=== PATIENT | female | born 1960 | race Caucasian/White ===

== ENCOUNTER 2018-04-22 20:55 | Observation (INO) | payer OTHER, SELFPAY ==
[2018-04-22 20:56] VITALS: BP 136/77; PULSE 82; RESP 16; TEMP 36.4; O2SAT 99; BMI 32.9
--- NOTE | 2018-04-22 21:10 | EKG12_ITS ---
Test Reason : SOB Blood Pressure : / mmHG Vent. Rate : 078 BPM Atrial Rate : 078 BPM P-R Int : 122 ms QRS Dur : 088 ms QT Int : 376 ms P-R-T Axes : 036 028 051 degrees QTc Int : 428 ms Normal sinus rhythm Normal ECG Confirmed by JT GOODRICH MD ([id number]), visual effects editor JENSEN HOPE ([id number] on 04/28/2018 9:14:20 AM Referred By: SARAH Confirmed By:JT GOODRICH MD
--- NOTE | 2018-04-22 21:10 | RAD_ITS ---
STUDY: X-RAY CHEST REASON FOR EXAM: Female, 57 years old. Cough and chest pain TECHNIQUE: PA and lateral COMPARISON: None. FINDINGS: There is minor chronic interstitial thickening in the lower lobes.. There are no focal infiltrates. There is no demonstrated pleural abnormality. Normal size heart. Normal mediastinum and john. Normal visualized pulmonary arteries. Normal visualized aortic arch and descending thoracic aorta. Normal visualized thoracic spine. Normal visualized ribs, clavicles, and shoulders. There is no demonstrated abnormality of the visualized soft tissue structures of the upper abdomen. RAD/Chest PA and Lateral IMPRESSION: No acute cardiopulmonary pathology Electronically Signed: Alvaro Sung MD at 22:15 EDT , Service support ,
--- NOTE | 2018-04-22 21:12 | ED.VISSUMM ---
- ER Visit Summary Date of Service: 04/22/18 Chief Complaint: Pleuritic chest pain, shortness of breath History of Present Illness: The patient is a 57 F who presents with 1 day of left-sided pleuritic chest pain. Patient states the pain started earlier today, and is located in the left lateral chest. It is worse with deep breath. She had a recent bad cold that started 2 weeks ago and was evaluated at [facility] urgent care, diagnosed with a viral syndrome and discharged with cough medicine. In the meantime she has traveled to [place], and returned yesterday. She had been feeling better from her cold but today developed the pleuritic chest pain and had a fever up to 101.8. She has nausea and myalgias. Denies hemoptysis. She states she has a history of pleurisy on both sides of her chest and this feels similar. She denies any history of prior DVT or PE, cardiac history, history of cancer, estrogen replacement, smoking. No history of diabetes or hypertension. Physical Examination: Vital signs: afebrile, hemodynamically stable, no hypoxia on room air General: well nourished, well developed, in no distress, frequent cough Skin: warm, dry, no rash, no pallor HEENT: normocephalic and atraumatic; PERRL, EOMI, moist mucous membranes Cardiovascular: regular rate and rhythm without murmurs, no friction rub, no peripheral edema, 2+ pulses all distal extremities Respiratory: No increased work of breathing, cough with deep breath, lungs are clear to auscultation bilaterally, no rales, rhonchi or wheezing Abdominal: Abdomen is soft, nontender with normoactive bowel sounds, no guarding or rebound, no masses MSK: Moves all extremities, no deformities, normal strength no calf tenderness, asymmetry or palpable cords Neuro: Awake and alert, oriented ?4. No facial droop, sensation and motor function intact and symmetric Test Results: Abnormal Lab Results 04/22/18 04/22/18 04/22/18 21:15 21:15 21:15 WBC 17.1 H RBC 4.30 Hgb 13.1 Hct 38.6 MCV 89.8 MCH 30.5 MCHC 33.9 RDW 13.4 RDW Differential 44.3 H Plt Count 272 MPV 9.2 Immature Gran % (Auto) 0.100 Neut % (Auto) 85.3 H Lymph % (Auto) 9.3 L [place] % (Auto) 4.8 Eos % (Auto) 0.4 Baso % (Auto) 0.1 Absolute Neuts (auto) 14.6 H Absolute Lymphs (auto) 1.59 Total Counted Not Reportable D-Dimer Quant (PE/DVT) 0.58 H* Sodium 137 Potassium 3.7 Chloride 102 Carbon Dioxide 28.0 Anion Gap 7 BUN 13 Creatinine 0.94 Estim Creat Clear Calc 52.22 Est GFR (MDRD) Af Amer 79 Est GFR (MDRD) Non-Af 65 BUN/Creatinine Ratio 13.9 Glucose 114 H Calcium 9.1 Troponin I < 0.015 Clinical Impression(s) from Imaging Studies Chest X-Ray 04/22/18 21:10 IMPRESSION: No acute cardiopulmonary pathology Electronically Signed: Alvaro Sung MD at 22:15 EDT , Service support , Chest CTA 04/22/18 21:57 IMPRESSION: No evidence of pulmonary embolism. No evidence of aortic dissection. 3.3 x 3.0 x 2.1 cm masslike density in the left upper lobe. Although infection could have this appearance neoplasm should be excluded. Left hilar lymphadenopathy. N.B. : The above information has been verbally conveyed by Ella Bennett MD to Yisel Fuller on 04/22/2018 23:32:31 (ET). Electronically Signed: Ella Bennett MD at 23:27 EDT Tel , Service support , N.B. : The above information has been verbally conveyed by Ella Bennett MD to Yisel Fuller on 04/22/2018 23:32:31 (ET). Emergency Department Course and Treatment: Patient presents with left-sided pleuritic chest pain and fever which she attributes to pleurisy 1 day after returning from [place]. Patient has had recent viral syndrome. Patient was given Toradol and Zofran for symptomatic relief. Given the recent long plane ride and the pleuritic chest pain, d-dimer was performed and was elevated at 0.58. Troponin negative. EKG showed no MD depression or ST elevation concerning for pericarditis, and no changes concerning for ischemia. Labs showed a leukocytosis of 17.1. BMP unremarkable. Given the elevated d-dimer, CT of the chest was performed and showed no PE or dissection. There was a masslike density in the left upper lobe that looked more consistent with a neoplasm than pneumonia. However given patient's symptoms that are consistent with infectious etiology, she was started on antibiotics to cover community acquired pneumonia. Patient was admitted for IV antibiotics and close monitoring as well as further characterization of the mass-like density. Patient agreed with this plan. She was discussed with Dr. Marshall for admission as observation status. Patient did not meet SIRS criteria, thus sepsis protocol was not initiated. Treatment Plan: [] Disposition: [] Impression: Community-acquired pneumonia, left upper lobe mass This note was generated with [employer] software. It may contain incorrect words, spelling, and punctuation that were not noted in review of the chart prior to signing ED Disposition - Plan for ED Patient: Chief Complaint: Shortness of Breath Referrals: Care Physician,No Primary [NON-STAFF] -
--- NOTE | 2018-04-22 21:15 | ED.DCSUM_ITS ---
- ER Visit Summary Date of Service: 04/22/18 Chief Complaint: Pleuritic chest pain, shortness of breath History of Present Illness: The patient is a 57 F who presents with 1 day of left-sided pleuritic chest pain. Patient states the pain started earlier today , and is located in the left lateral chest. It is worse with deep breath. She had a recent bad cold that started 2 weeks ago and was evaluated at [facility] urgent care, diagnosed with a viral syndrome and discharged with cough medicine. In the meantime she has traveled to [place], and returned yesterday. She had been feeling better from her cold but today developed the pleuritic chest pain and had a fever up to 101.8. She has nausea and myalgias. Denies hemoptysis. She states she has a history of pleurisy on both sides of her chest and this feels similar. She denies any history of prior DVT or PE, cardiac history, history of cancer, estrogen replacement, smoking. No history of diabetes or hypertension. Physical Examination: Vital signs: afebrile, hemodynamically stable, no hypoxia on room air General: well nourished, well developed, in no distress, frequent cough Skin: warm, dry, no rash, no pallor HEENT: normocephalic and atraumatic; PERRL, EOMI, moist mucous membranes Cardiovascular: regular rate and rhythm without murmurs, no friction rub, no peripheral edema, 2+ pulses all distal extremities Respiratory: No increased work of breathing, cough with deep breath, lungs are clear to auscultation bilaterally, no rales, rhonchi or wheezing Abdominal: Abdomen is soft, nontender with normoactive bowel sounds, no guarding or rebound, no masses MSK: Moves all extremities, no deformities, normal strength no calf tenderness, asymmetry or palpable cords Neuro: Awake and alert, oriented ?4. No facial droop, sensation and motor function intact and symmetric Test Results: Abnormal Lab Results 04/22/18 04/22/18 04/22/18 21:15 21:15 21:15 WBC 17.1 H RBC 4.30 Hgb 13.1 Hct 38.6 MCV 89.8 MCH 30.5 MCHC 33.9 RDW 13.4 RDW Differential 44.3 H Plt Count 272 MPV 9.2 Immature Gran % (Auto) 0.100 Neut % (Auto) 85.3 H Lymph % (Auto) 9.3 L [place] % (Auto) 4.8 Eos % (Auto) 0.4 Baso % (Auto) 0.1 Absolute Neuts (auto) 14.6 H Absolute Lymphs (auto) 1.59 Total Counted Not Reportable D-Dimer Quant (PE/DVT) 0.58 H* Sodium 137 Potassium 3.7 Chloride 102 Carbon Dioxide 28.0 Anion Gap 7 BUN 13 Creatinine 0.94 Estim Creat Clear Calc 52.22 Est GFR (MDRD) Af Amer 79 Est GFR (MDRD) Non-Af 65 BUN/Creatinine Ratio 13.9 Glucose 114 H Calcium 9.1 Troponin I < 0.015 Clinical Impression(s) from Imaging Studies Chest X-Ray 04/22/18 21:10 IMPRESSION: No acute cardiopulmonary pathology Electronically Signed: Alvaro Sung MD at 22:15 EDT , Service support , Chest CTA 04/22/18 21:57 IMPRESSION: No evidence of pulmonary embolism. No evidence of aortic dissection. 3.3 x 3.0 x 2.1 cm masslike density in the left upper lobe. Although infection could have this appearance neoplasm should be excluded. Left hilar lymphadenopathy. N.B. : The above information has been verbally conveyed by Ella Bennett MD to Yisel Fuller on 04/22/2018 23:32:31 (ET). Electronically Signed: Ella Bennett MD at 23:27 EDT Tel , Service support , N.B. : The above information has been verbally conveyed by Ella Bennett MD to Yisel Fuller on 04/22/2018 23:32:31 (ET). Emergency Department Course and Treatment: Patient presents with left-sided pleuritic chest pain and fever which she attributes to pleurisy 1 day after returning from [place]. Patient has had recent viral syndrome. Patient was given Toradol and Zofran for symptomatic relief. Given the recent long plane ride and the pleuritic chest pain, d-dimer was performed and was elevated at 0.58. Troponin negative. EKG showed no IA depression or ST elevation concerning for pericarditis, and no changes concerning for ischemia. Labs showed a leukocytosis of 17.1. BMP unremarkable. Given the elevated d-dimer, CT of the chest was performed and showed no PE or dissection. There was a masslike density in the left upper lobe that looked more consistent with a neoplasm than pneumonia. However given patient's symptoms that are consistent with infectious etiology, she was started on antibiotics to cover community acquired pneumonia. Patient was admitted for IV antibiotics and close monitoring as well as further characterization of the mass-like density. Patient agreed with this plan. She was discussed with Dr. Marshall for admission as observation status. Patient did not meet SIRS criteria, thus sepsis protocol was not initiated. Treatment Plan: [] Disposition: [] Impression: Community-acquired pneumonia, left upper lobe mass This note was generated with [employer] software. It may contain incorrect words, spelling, and punctuation that were not noted in review of the chart prior to signing ED Disposition - Plan for ED Patient: Chief Complaint: Shortness of Breath Referrals: Care Physician,No Primary [NON-STAFF] -
[2018-04-22] MEDS: Ondansetron 4 MG/2 ML Vial IV (21:20)
[2018-04-22] MEDS: Ketorolac 15 MG/ML Vial IV (21:20)
[2018-04-22] MEDS: 0.9% Normal Saline 1,000 ML 999 ML IV (21:21)
[2018-04-22 21:23] LABS: Absolute Lymphocyte Count 1.59 X10^3/ul (0.83-4.51); Absolute Neutrophil Count 14.6 X10^3/uL (2.0-7.7); Basophil# 0.01 X10^3/uL; Basophil% 0.1 % (0-1); Eosinophil# 0.06 X10^3/uL; Eosinophils% 0.4 % (0-5); Hematocrit 38.6 % (37-47); Hemoglobin 13.1 g/dl (12.0-15.0); Lymphocyte # 1.59 X10^3/ul (4.0); Lymphocyte % 9.3 % (19-41); Mean Corp Hgb Conc 33.9 g/gl (32-36); Mean Corpuscular Hgb 30.5 pg (27.0-32.0); Mean Corpuscular Volume 89.8 fL (81-99); Mean Platelet Vol. 9.2 fl (6.2-12.0); Monocyte# 0.83 X10^3/uL; Monocyte% 4.8 % (0-10); Neutrophil # 14.63 X10^3/uL (2.7-7.7); Neutrophil % 85.3 % (47-70); POSITIVE COUNT NO; POSITIVE DIFFERENTIAL NO; POSITIVE MORPHOLOGY NO; Platelet Count 272 K/mm3 (150-450); RBC Distribution Width CV 13.4 % (11.6-14.6); RBC Distribution Width SD 44.3 fl (35.1-43.9); White Blood Count 17.1 K/mm3 (4.4-11.0)
[2018-04-22 21:37] LABS: D-Dimer Quantitative (DVT/PE) 0.58 FEU/ug/m (0.27-0.49)
[2018-04-22 21:40] LABS: Anion Gap 7 (5-15); BUN 13 mg/dL (7-18); BUN/Creat Ratio 13.9 RATIO (10-20); Calcium,Total 9.1 mg/dL (8.5-10.1); Chloride 102 mmol/L (98-107); Creatinine, Serum 0.94 mg/dL (0.55-1.02); EST Glomerular Filtration Rate 65 mL/min (>60); Est Glom Filt Rate - Afr Amer 79 mL/min (>60); Estimated Creatinine Clearance 52.22 ml/min; Glucose 114 mg/dL (74-106); Potassium 3.7 mmol/L (3.5-5.1); Sodium Level 137 mmol/L (136-145)
--- NOTE | 2018-04-22 21:57 | CT_ITS ---
STUDY: CTA CHEST REASON FOR EXAM: Female, 57 years old. Shortness of breath, increased cough nausea fever and elevated white count d-dimer RADIATION DOSAGE (If Supplied By Facility): CTDIvol = ( 13.09 ) mGy, DLP = ( 597.95 ) mGycm TECHNIQUE: The examination was performed with the intravenous administration of 100ML ml of Isovue 370 contrast material. Post-processing of the angiographic images was performed, with multiplanar reformation and 3D reconstruction. Individualized dose optimization techniques were used for this CT. COMPARISON: April 22, 2018 chest x-ray FINDINGS: Normal enhancement of the main pulmonary artery and right and left pulmonary arteries. Normal enhancement of the bilateral peripheral pulmonary arteries. There is no demonstrated pulmonary embolism. Normal thoracic aorta and visualized great vessels. There is no demonstrated aortic dissection. Normal heart and pericardium. Normal mediastinum. There is a thickened appearance of the left hilum. There is a 1.3 x 0.7 cm lymph node. Normal visualized trachea and bronchi. There is a focal rounded masslike consolidation in the left upper lobe that measures 3.3 x 3.0 x 2.1 cm with adjacent nodular densities injuring up to 1.3 x 0.9 cm. There is right apical thickening. There are a few scattered areas of groundglass opacity and/or air trapping. There is trace pleural thickening adjacent to the aforementioned masslike density. Normal chest wall structures. Normal osseous structures. There is a small atrial hernia. There is hepatic steatosis. CT/CTA Chest W/WO Contrast IMPRESSION: No evidence of pulmonary embolism. No evidence of aortic dissection. 3.3 x 3.0 x 2.1 cm masslike density in the left upper lobe. Although infection could have this appearance neoplasm should be excluded. Left hilar lymphadenopathy. N.B. : The above information has been verbally conveyed by Ella Bennett MD to Yisel Fuller on 04/22/2018 23:32:31 (ET). Electronically Signed: Ella Bennett MD at 23:27 EDT Tel , Service support , N.B. : The above information has been verbally conveyed by Ella Bennett MD to Yisel Fuller on 04/22/2018 23:32:31 (ET).
--- NOTE | 2018-04-22 23:59 | HP.PCM_ITS ---
Problem List (1) CAP (community acquired pneumonia) Status: Acute (2) Left frontal lobe mass Status: Acute History of Present Illness Date of Admission: 04/22/18 Chief Complaint: CAP The patient is a 57 year old female admitted for CAP. She was diagnosis with viral bronchitis prior to her trip to [place]. She was coughing and has mild SOB. She was given cough suppressant meds but she did not take it. During her trip, she noted that her cough has decrease in intensity and frequency. However, as she got back on the plane back to [place], she noted possible worsening SOB and cough. Given the duration of her cough, she decided to go to the ED for further workup. 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 Denies: Shortness of breath at rest, Sputum production Gastrointestinal: Denies: Abdominal Pain, Nausea, Vomiting Genitourinary: Denies: Dysuria Musculoskeletal: Denies: Joint Pain, Joint Tenderness Skin: Denies: Rash, Wounds Neurological: Denies: Numbness, Tingling, Focal weakness Psychiatric: Denies: Anxiety, Depression, Homicidal Ideations, Suicidal Ideations Hematologic/ Lymphatic: Denies: Easy Bruising, Easy Bleeding VTE Information - Inpt Only VTE Present on Admission: No VTE Mechan Device Prophylaxis: SCD's VTE Pharm Prophylaxis ordered?: Yes Patient Problems: Active and Suspected Problems CAP (community acquired pneumonia) (Acute) Left frontal lobe mass (Acute) - Physical Exam General: Alert, Oriented x3, Cooperative HEENT: Atraumatic, PERRLA, EOMI, Normocephalic Neck: Supple, No JVD, Negative Carotid Bruits Lungs: Normal air movement, Diminished, Rales, Short of Breath Cardiovascular: Regular rate, No murmurs Abdomen: Bowel Sounds Present, Soft, Non Tender Extremities: No edema, Capillary Refill Less than 3 Seconds Skin: No rashes, No breakdown Musculoskeletal: No Tenderness to Palpation of Joints or Extremities Neurological: Cranial nerves II-XII grossly intact Psych/Mental Status: Normal Affect, Appropriate Vital Signs Temp Pulse Resp BP Pulse Ox 97.6 F L 82 16 136/77 H 99 04/22/18 20:56 04/22/18 20:56 04/22/18 20:56 04/22/18 20:56 04/22/18 20:56 Weight: 81.647 kg Body Mass Index (BMI) 32.9 Laboratory Tests Past 24 Hrs 04/22/18 04/22/18 04/22/18 21:15 21:15 21:15 WBC 17.1 H RBC 4.30 Hgb 13.1 Hct 38.6 MCV 89.8 MCH 30.5 MCHC 33.9 RDW 13.4 RDW Differential 44.3 H Plt Count 272 MPV 9.2 Immature Gran % (Auto) 0.100 Neut % (Auto) 85.3 H Lymph % (Auto) 9.3 L [place] % (Auto) 4.8 Eos % (Auto) 0.4 Baso % (Auto) 0.1 Absolute Neuts (auto) 14.6 H Absolute Lymphs (auto) 1.59 Total Counted Not Reportable D-Dimer Quant (PE/DVT) 0.58 H* Sodium 137 Potassium 3.7 Chloride 102 Carbon Dioxide 28.0 Anion Gap 7 BUN 13 Creatinine 0.94 Estim Creat Clear Calc 52.22 Est GFR (MDRD) Af Amer 79 Est GFR (MDRD) Non-Af 65 BUN/Creatinine Ratio 13.9 Glucose 114 H Calcium 9.1 Troponin I < 0.015 Assessment/Plan All Active Problems CAP (community acquired pneumonia) (Acute) Left frontal lobe mass (Acute) 57 year old female admitted for CAP. 1) CAP: Will start ceftriaxone and azithromycin. Cultures pending. IVF hydration. Supportive care. 2) Left upper lobe mass: Probably will need repeat imaging after infection resolves. Consult pulmonary. Monitor. 3) HTN: Supportive care. Monitor. 4) Prophylaxis: SCD / heparin.
[2018-04-23] VITALS (7 sets, daily range): BP systolic 102–139; BP diastolic 54–74; PULSE 17–88; RESP 16–20; TEMP 36.1–38.4; O2SAT 94–98; BMI 34.2; BMI 34.3
[2018-04-23] MEDS: Ceftriaxone 1 GM/50 ML BAG IV (00:27)
[2018-04-23] MEDS: Morphine 2 MG/ML Syringe IV (01:48)
[2018-04-23] MEDS: 0.9% Normal Saline 1,000 ML 125 ML IV (02:18)
[2018-04-23 04:14] LABS: Color, Urine Yellow (Yellow); Glucose, Dipstick Normal (Normal); Ketone-Dipstick Negative (Negative); Leukocyte Esterase-Dipstick 25 /ul (Negative); Nitrite-Dipstick Negative (Negative); Occult Blood-Urine 10 /ul (Negative); Protein-Dipstick 15 mg/dl (Negative); Urine Bilirubin Dipstick Negative (Negative); Urine Clarity Sl. Cloudy (Clear); Urine Urobilinogen Normal (Normal)
[2018-04-23] MEDS: Heparin Injection (Vial) 5,000 UNIT/ML VIAL 5000 UNIT SC (05:46)
--- NOTE | 2018-04-23 08:09 | PCM.CONS.GEN ---
Problem List (1) CAP (community acquired pneumonia) Status: Acute Qualifiers: Laterality: left Lung location: upper lobe of lung Qualified Code(s): J18.1 - Lobar pneumonia, unspecified organism (2) Pleurisy without effusion Status: Acute Reason for Consult Date of Consultation: 04/23/18 Reason for Consultation: Pneumonia versus lung mass History of Present Illness: The patient is a 57 year old F with past medical history listed below, who presented with a one-day history of left-sided pleuritic chest pain. Patient states that it started on the day of presentation in the left anterior chest. This was reported worse with deep inhalation. Patient had also noted a temperature up to 101.8?F, nausea and myalgias. Patient reports that 2 weeks ago she was seen at [facility] urgent care and diagnosed with a viral syndrome. Patient states she was discharged on cough medicine and did make it back to her baseline prior to developing symptoms of presentation. While in the emergency room, patient was noted to be afebrile without hypoxemia on room air. A chest x-ray was read as normal, but his CTA was obtained to rule out pulmonary embolism. This was significant for a 3.3 x 3 x 2.1 cm filtrate in the left upper lobe with extension to the pleura and concomitant left hilar lymphadenopathy. Patient was placed on community-acquired antibiotics and admitted to the floor for further evaluation. Patient reports she has had pleurisy approximately 6 years ago. Patient states that she recovered without any further issues. Patient denies any baseline respiratory complaints. Patient has never required inhalers or had a pulmonary function test. Patient does report that she has been compliant with her mammogram and recently had a hysterectomy without any malignancy. Patient states that she has had a colonoscopy in the past that was normal and that a new one is scheduled for this Wednesday. Patient denies any weight loss, hemoptysis, rash or toxic exposures. Patient does report that she recently took a trip with students to [place]. Patient states that she tolerated this well and had no issues while on vacation outside of the recovery from the URI described earlier. Review of systems otherwise negative ?10 systems. Past Medical History Allergies hydromorphone [From Dilaudid] Adverse Reaction (Verified 04/22/18 20:57) Vomiting Home Medications: Ambulatory Orders Medication Instructions Recorded Acetaminophen/Diphenhydramine 1 each PO QHS 10/27/17 [Tylenol Pm Ex-Strength Caplet] Esomeprazole Mag Trihydrate 40 mg PO DAILY 10/27/17 [Nexium] Multivitamin [Multiple Vitamins] 1 each PO DAILY 04/22/18 Psychiatric History: No pertinent psych hx CAT DOG OR OTHER PET GROOMER History: No pertinent CAT DOG OR OTHER PET GROOMER history Smoking Status: Never smoker Alcohol: None Drugs: None - *Family History Maternal History Items: - - Grandmother had breast cancer Review of Systems Comment: See HPI Patient Problems: Active and Suspected Problems CAP (community acquired pneumonia) (Acute) Left frontal lobe mass (Acute) Pleurisy without effusion (Acute) Objective: All imaging was personally reviewed by myself and with the patient. The area of concern was pointed out and described in detail. - Physical Exam General: Alert, Oriented x3, Cooperative, No apparent distress, Well developed, Well nourished, - - Speaking in full sentences. HEENT: Atraumatic, PERRLA, EOMI, Normocephalic, - - No scleral icterus or injection noted. Oral: Moist Mucosa, No Gingival or Mucosal Lesions/ Ulcerations Neck: Supple, No JVD, No Nodes, Trachea Midline Lungs: Clear to auscultation, Normal air movement, No rhonchi, No wheeze, No rales, - - Unable to replicate pain with palpation Cardiovascular: Regular rate, Regular Rhythm, Normal S1, Normal S2, No murmurs, No rub noted, No Gallop Abdomen: Bowel Sounds Present, Soft, Non Tender, Non-Distended, Obese Extremities: No clubbing, No cyanosis, No edema, Capillary Refill Less than 3 Seconds Skin: No rashes, No breakdown Musculoskeletal: No Tenderness to Palpation of Joints or Extremities, No Muscle Wasting Lymphatic: No Cervical, Supraclavicular, or Inguinal Adenopathy Neurological: Cranial nerves II-XII grossly intact, Neuro grossly intact, Motor Exam 5/5 strength throughout Psych/Mental Status: Alert and oriented to time, place, person, mood and affect Vital Signs Temp Pulse Resp BP Pulse Ox 37.8 C H 86 16 139/73 H 96 04/23/18 05:38 04/23/18 06:14 04/23/18 05:38 04/23/18 05:38 04/23/18 05:38 Oxygen Delivery Method Room Air Weight: 85 kg Body Mass Index (BMI) 34.2 Intake and Output for Last 24 Hours 04/21/18 04/22/18 04/23/18 23:59 23:59 23:59 Intake Total 1133 / 1133 Balance 1133 / 1133 Microbiology Past 72 Hours 04/23/18 05:45 Influenza Types A,B Direct FA (RAMON) - Final Mucosa - Nasopharyngeal 04/23/18 04:00 Streptococcus pneumoniae Antigen (M - Final Urine, Random 04/23/18 04:00 Legionella Antigen - Final Urine, Random Laboratory Tests 04/22/18 04/22/18 04/22/18 21:15 21:15 21:15 WBC 17.1 H RBC 4.30 Hgb 13.1 Hct 38.6 MCV 89.8 MCH 30.5 MCHC 33.9 RDW 13.4 RDW Differential 44.3 H Plt Count 272 MPV 9.2 Immature Gran % (Auto) 0.100 Neut % (Auto) 85.3 H Lymph % (Auto) 9.3 L [place] % (Auto) 4.8 Eos % (Auto) 0.4 Baso % (Auto) 0.1 Absolute Neuts (auto) 14.6 H Absolute Lymphs (auto) 1.59 Total Counted Not Reportable D-Dimer Quant (PE/DVT) 0.58 H* Sodium 137 Potassium 3.7 Chloride 102 Carbon Dioxide 28.0 Anion Gap 7 BUN 13 Creatinine 0.94 Estim Creat Clear Calc 52.22 Est GFR (MDRD) Af Amer 79 Est GFR (MDRD) Non-Af 65 BUN/Creatinine Ratio 13.9 Glucose 114 H Calcium 9.1 Troponin I < 0.015 Urine Color Urine Clarity Urine pH Ur Specific [place] Urine Protein Urine Glucose (UA) Urine Ketones Urine Occult Blood Urine Nitrite Urine Bilirubin Urine Urobilinogen Ur Leukocyte Esterase 04/23/18 04:00 WBC RBC Hgb Hct MCV MCH MCHC RDW RDW Differential Plt Count MPV Immature Gran % (Auto) Neut % (Auto) Lymph % (Auto) [place] % (Auto) Eos % (Auto) Baso % (Auto) Absolute Neuts (auto) Absolute Lymphs (auto) Total Counted D-Dimer Quant (PE/DVT) Sodium Potassium Chloride Carbon Dioxide Anion Gap BUN Creatinine Estim Creat Clear Calc Est GFR (MDRD) Af Amer Est GFR (MDRD) Non-Af BUN/Creatinine Ratio Glucose Calcium Troponin I Urine Color Yellow Urine Clarity Sl. Cloudy Urine pH 6.0 Ur Specific [place] 1.010 Urine Protein 15 H Urine Glucose (UA) Normal Urine Ketones Negative Urine Occult Blood 10 H Urine Nitrite Negative Urine Bilirubin Negative Urine Urobilinogen Normal Ur Leukocyte Esterase 25 H Clinical Impression(s) from Imaging Studies Chest X-Ray 04/22/18 21:10 IMPRESSION: No acute cardiopulmonary pathology Electronically Signed: Alvaro Sung MD at 22:15 EDT , Service support , Chest CTA 04/22/18 21:57 IMPRESSION: No evidence of pulmonary embolism. No evidence of aortic dissection. 3.3 x 3.0 x 2.1 cm masslike density in the left upper lobe. Although infection could have this appearance neoplasm should be excluded. Left hilar lymphadenopathy. N.B. : The above information has been verbally conveyed by Ella Bennett MD to Yisel Fuller on 04/22/2018 23:32:31 (ET). Electronically Signed: Ella Bennett MD at 23:27 EDT Tel , Service support , N.B. : The above information has been verbally conveyed by Ella Bennett MD to Yisel Jonny on 04/22/2018 23:32:31 (ET). Assessment/Plan All Active Problems CAP (community acquired pneumonia) (Acute) Left frontal lobe mass (Acute) Pleurisy without effusion (Acute) RECOMMENDATIONS: 1. NSAID therapy for pleurisy 2. Complete a 10 day course of antibiotics for pneumonia 3. Repeat CT scan in 6-8 weeks 4. Walking oximetry prior to discharge 5. Follow-up with nurse practitioner 2 weeks after discharge to ensure resolution IMPRESSIONS: 1. Pleurisy secondary to community-acquired pneumonia After personal review of CT scan, findings are more consistent with a bacterial pneumonia than a mass. Patient is aware that pneumonia can obscure underlying malignancy. Patient does not have a high risk history for malignancy. Recommend treating with a full course of antibiotics. Patient has no reported history of obstructive lung disease, so steroids would not be indicated. Patient can likely be discharged from a pulmonary perspective with follow-up in our office in 2 weeks with nurse practitioner to ensure resolution and to order follow-up CT. A repeat CT scan in 6-8 weeks can be obtained. NSAIDs would likely be appropriate for pleurisy. Code Visit Inpatient E&M: 64532 Init Hosp L2
--- NOTE | 2018-04-23 08:37 | CON.PCM_ITS ---
Problem List (1) CAP (community acquired pneumonia) Status: Acute Qualifiers: Laterality: left Lung location: upper lobe of lung Qualified Code(s): J18.1 - Lobar pneumonia, unspecified organism (2) Pleurisy without effusion Status: Acute Reason for Consult Date of Consultation: 04/23/18 Reason for Consultation: Pneumonia versus lung mass History of Present Illness: The patient is a 57 year old F with past medical history listed below, who presented with a one-day history of left-sided pleuritic chest pain. Patient states that it started on the day of presentation in the left anterior chest. This was reported worse with deep inhalation. Patient had also noted a temperature up to 101.8?F, nausea and myalgias. Patient reports that 2 weeks ago she was seen at [facility] urgent care and diagnosed with a viral syndrome. Patient states she was discharged on cough medicine and did make it back to her baseline prior to developing symptoms of presentation. While in the emergency room, patient was noted to be afebrile without hypoxemia on room air. A chest x-ray was read as normal, but his CTA was obtained to rule out pulmonary embolism. This was significant for a 3.3 x 3 x 2.1 cm filtrate in the left upper lobe with extension to the pleura and concomitant left hilar lymphadenopathy. Patient was placed on community-acquired antibiotics and admitted to the floor for further evaluation. Patient reports she has had pleurisy approximately 6 years ago. Patient states that she recovered without any further issues. Patient denies any baseline respiratory complaints. Patient has never required inhalers or had a pulmonary function test. Patient does report that she has been compliant with her mammogram and recently had a hysterectomy without any malignancy. Patient states that she has had a colonoscopy in the past that was normal and that a new one is scheduled for this Wednesday. Patient denies any weight loss, hemoptysis, rash or toxic exposures. Patient does report that she recently took a trip with students to [place]. Patient states that she tolerated this well and had no issues while on vacation outside of the recovery from the URI described earlier. Review of systems otherwise negative ?10 systems. 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 The area of concern was pointed out and described in detail. - Physical Exam General: Alert, Oriented x3, Cooperative, No apparent distress, Well developed, Well nourished, - - Speaking in full sentences. HEENT: Atraumatic, PERRLA, EOMI, Normocephalic, - - No scleral icterus or injection noted. Oral: Moist Mucosa, No Gingival or Mucosal Lesions/ Ulcerations Neck: Supple, No JVD, No Nodes, Trachea Midline Lungs: Clear to auscultation, Normal air movement, No rhonchi, No wheeze, No rales, - - Unable to replicate pain with palpation Cardiovascular: Regular rate, Regular Rhythm, Normal S1, Normal S2, No murmurs, No rub noted, No Gallop Abdomen: Bowel Sounds Present, Soft, Non Tender, Non-Distended, Obese Extremities: No clubbing, No cyanosis, No edema, Capillary Refill Less than 3 Seconds Skin: No rashes, No breakdown Musculoskeletal: No Tenderness to Palpation of Joints or Extremities, No Muscle Wasting Lymphatic: No Cervical, Supraclavicular, or Inguinal Adenopathy Neurological: Cranial nerves II-XII grossly intact, Neuro grossly intact, Motor Exam 5/5 strength throughout Psych/Mental Status: Alert and oriented to time, place, person, mood and affect Vital Signs Temp Pulse Resp BP Pulse Ox 37.8 C H 86 16 139/73 H 96 04/23/18 05:38 04/23/18 06:14 04/23/18 05:38 04/23/18 05:38 04/23/18 05:38 Oxygen Delivery Method Room Air Weight: 85 kg Body Mass Index (BMI) 34.2 Intake and Output for Last 24 Hours 04/21/18 04/22/18 04/23/18 23:59 23:59 23:59 Intake Total 1133 / 1133 Balance 1133 / 1133 Microbiology Past 72 Hours 04/23/18 05:45 Influenza Types A,B Direct FA (RAMON) - Final Mucosa - Nasopharyngeal 04/23/18 04:00 Streptococcus pneumoniae Antigen (M - Final Urine, Random 04/23/18 04:00 Legionella Antigen - Final Urine, Random Laboratory Tests 04/22/18 04/22/18 04/22/18 21:15 21:15 21:15 WBC 17.1 H RBC 4.30 Hgb 13.1 Hct 38.6 MCV 89.8 MCH 30.5 MCHC 33.9 RDW 13.4 RDW Differential 44.3 H Plt Count 272 MPV 9.2 Immature Gran % (Auto) 0.100 Neut % (Auto) 85.3 H Lymph % (Auto) 9.3 L [place] % (Auto) 4.8 Eos % (Auto) 0.4 Baso % (Auto) 0.1 Absolute Neuts (auto) 14.6 H Absolute Lymphs (auto) 1.59 Total Counted Not Reportable D-Dimer Quant (PE/DVT) 0.58 H* Sodium 137 Potassium 3.7 Chloride 102 Carbon Dioxide 28.0 Anion Gap 7 BUN 13 Creatinine 0.94 Estim Creat Clear Calc 52.22 Est GFR (MDRD) Af Amer 79 Est GFR (MDRD) Non-Af 65 BUN/Creatinine Ratio 13.9 Glucose 114 H Calcium 9.1 Troponin I < 0.015 Urine Color Urine Clarity Urine pH Ur Specific [place] Urine Protein Urine Glucose (UA) Urine Ketones Urine Occult Blood Urine Nitrite Urine Bilirubin Urine Urobilinogen Ur Leukocyte Esterase 04/23/18 04:00 WBC RBC Hgb Hct MCV MCH MCHC RDW RDW Differential Plt Count MPV Immature Gran % (Auto) Neut % (Auto) Lymph % (Auto) [place] % (Auto) Eos % (Auto) Baso % (Auto) Absolute Neuts (auto) Absolute Lymphs (auto) Total Counted D-Dimer Quant (PE/DVT) Sodium Potassium Chloride Carbon Dioxide Anion Gap BUN Creatinine Estim Creat Clear Calc Est GFR (MDRD) Af Amer Est GFR (MDRD) Non-Af BUN/Creatinine Ratio Glucose Calcium Troponin I Urine Color Yellow Urine Clarity Sl. Cloudy Urine pH 6.0 Ur Specific [place] 1.010 Urine Protein 15 H Urine Glucose (UA) Normal Urine Ketones Negative Urine Occult Blood 10 H Urine Nitrite Negative Urine Bilirubin Negative Urine Urobilinogen Normal Ur Leukocyte Esterase 25 H Clinical Impression(s) from Imaging Studies Chest X-Ray 04/22/18 21:10 IMPRESSION: No acute cardiopulmonary pathology Electronically Signed: Alvaro Sung MD at 22:15 EDT , Service support , Chest CTA 04/22/18 21:57 IMPRESSION: No evidence of pulmonary embolism. No evidence of aortic dissection. 3.3 x 3.0 x 2.1 cm masslike density in the left upper lobe. Although infection could have this appearance neoplasm should be excluded. Left hilar lymphadenopathy. N.B. : The above information has been verbally conveyed by Ella Bennett MD to Yisel Fuller on 04/22/2018 23:32:31 (ET). Electronically Signed: Ella Bennett MD at 23:27 EDT Tel , Service support , N.B. : The above information has been verbally conveyed by Ella Bennett MD to Yisel Jonny on 04/22/2018 23:32:31 (ET). Assessment/Plan All Active Problems CAP (community acquired pneumonia) (Acute) Left frontal lobe mass (Acute) Pleurisy without effusion (Acute) RECOMMENDATIONS: 1. NSAID therapy for pleurisy 2. Complete a 10 day course of antibiotics for pneumonia 3. Repeat CT scan in 6-8 weeks 4. Walking oximetry prior to discharge 5. Follow-up with nurse practitioner 2 weeks after discharge to ensure resolution IMPRESSIONS: 1. Pleurisy secondary to community-acquired pneumonia After personal review of CT scan, findings are more consistent with a bacterial pneumonia than a mass. Patient is aware that pneumonia can obscure underlying malignancy. Patient does not have a high risk history for malignancy. Recommend treating with a full course of antibiotics. Patient has no reported history of obstructive lung disease, so steroids would not be indicated. Patient can likely be discharged from a pulmonary perspective with follow-up in our office in 2 weeks with nurse practitioner to ensure resolution and to order follow-up CT. A repeat CT scan in 6-8 weeks can be obtained. NSAIDs would likely be appropriate for pleurisy. Code Visit Inpatient E&M: 13300 Init Hosp L2
--- NOTE | 2018-04-23 09:00 | PCM.DC ---
- Discharge Diagnoses Current Active Problems: Current Active and Chronic Problems CAP (community acquired pneumonia) (Acute) Left frontal lobe mass (Acute) Pleurisy without effusion (Acute) You will use the following diet at home:: Regular Discharge Activity: Return to Normal Activity Weight Bearing Status: Weight bearing as tolerated Call your doctor if you observe: Fever of 101 or Higher Additional Instructions: Follow-up in 2 weeks with Aletha Weinstein NP, pulmonary clinic Allergies/Adverse Reactions: Allergies hydromorphone [From Dilaudid] Adverse Reaction (Verified 04/22/18 20:57) Vomiting Medications to take at Discharge Acetaminophen/Diphenhydramine [Tylenol Pm Ex-Strength Caplet] 1 each PO QHS 10/27/17 Esomeprazole Mag Trihydrate [Nexium] 40 mg PO DAILY 10/27/17 Multivitamin [Multiple Vitamins] 1 each PO DAILY 04/22/18 Guaifenesin [Mucinex] 1,200 mg PO BID #14 tab 04/23/18 Ibuprofen [Advil] 600 mg PO Q6H PRN PRN #30 tablet 04/23/18 Lactobacillus Acidophilus [Acidophilus] 1 tab PO BID 7 Days #14 tab 04/23/18 Levofloxacin [Levaquin] 500 mg PO DAILY #5 tab 04/23/18 The following prescriptions were given: Ibuprofen [Advil] 600 mg PO Q6H PRN PRN #30 tablet PRN Reason: pleurisy pain Levofloxacin [Levaquin] 500 mg PO DAILY #5 tab Guaifenesin [Mucinex] 1,200 mg PO BID #14 tab Lactobacillus Acidophilus [Acidophilus] 1 tab PO BID 7 Days #14 tab Primary Care Physician: Care Physician,No Primary [NON-STAFF] - Please follow up with your Primary Care Physician in: in 2 weeks Please Follow Up With: Earl Coppola MD When: in [address] Chest for CARLOS consolidation mass
--- NOTE | 2018-04-23 09:03 | PCM.DC.SUM ---
Discharge Date and Diagnosis Date of Admission: 04/22/18 Date of Discharge: 04/23/18 - Primary Discharge Diagnosis Active and Suspected Problems 1) SIRS (mild fever with leukocytosis with left shift) secondary to left upper lobe CAP: 2) Left upper lobe mass: As mentioned above symptoms pneumonic consolidation. Left upper chest pleuritic pain from pneumonia Hospital Course and Treatment Imaging Results: 04/24/18 05:59 Chest PA and Lateral [RAD] Routine Summary of Care Provided: [] The patient is a 57 year old female came to ER with shortness of breath, cough, not getting better on cough suppressant medication along with left-sided chest pain pleuritic in nature. Workup in the ER shows left upper lobe consolidation suggestive of community-acquired pneumonia. She was diagnosis with viral bronchitis prior to her trip to [place]. CT chest done in the ER was done to rule out PE but showed 3.3 x 3.0 x 2.1 cm masslike density left upper lobe with extension to pleura. Pulmonary was consulted. It look like pneumonic consolidation patient was started on IV Rocephin and Zithromax. She was further admitted on the regular [facility] floor. The patient was seen and examined today General: Alert, Oriented x3, Cooperative HEENT: Atraumatic, PERRLA, EOMI, Normocephalic Neck: Supple, No JVD, Negative Carotid Bruits Lungs: Normal air movement, coarse crepitation present over anteriorly on left upper chest. Shortness of breath resolved Cardiovascular: Regular rate, No murmurs Abdomen: Bowel Sounds Present, Soft, Non Tender Extremities: No edema, Capillary Refill Less than 3 Seconds Skin: No rashes, No breakdown Musculoskeletal: No Tenderness to Palpation of Joints or Extremities Neurological: Cranial nerves II-XII grossly intact Psych/Mental Status: Normal Affect, Appropriate Further hospital course and management as follows 1) SIRS (mild fever with leukocytosis with left shift) secondary to left upper lobe CAP: Started on ceftriaxone and azithromycin. Urinary antigens are negative. Influenza test is negative. Patient is stable to be discharged on antibiotic Levaquin for 5 more days as she got 2 days Here in the hospital. Seen by the coin machine collector supervisor and agree with the discharge 2) Left upper lobe mass: As mentioned above symptoms pneumonic consolidation. Patient was advised to repeat CT chest after 6 weeks and follow-up with the coin machine collector supervisor Dr. Coppola. Follow-up in pulmonary clinic in 2 weeks with Aletha Weinstein Left upper chest pleuritic pain from pneumonia: Patient pain was controlled with Toradol here and advised to take Motrin 600 mg 3 times daily as needed for pain 3) HTN: Supportive care. 4) Prophylaxis: SCD / heparin. Discharge medication reconciliation done. Discharge follow-up instructions completed. Total time spent, exact 35 minutes on discharge meds reconciliation, examination, review of imaging and blood test and discussion with the patient on follow-up instructions. Clinical Impression(s) from Imaging Studies Chest X-Ray 04/22/18 21:10 IMPRESSION: No acute cardiopulmonary pathology Electronically Signed: Alvaro Sung MD at 22:15 EDT , Service support , Chest CTA 04/22/18 21:57 IMPRESSION: No evidence of pulmonary embolism. No evidence of aortic dissection. 3.3 x 3.0 x 2.1 cm masslike density in the left upper lobe. Although infection could have this appearance neoplasm should be excluded. Left hilar lymphadenopathy. Discharge Activity: Return to Normal Activity Weight Bearing Status: Weight bearing as tolerated Call your doctor if you observe: Fever of 101 or Higher Home Medications: Medications to take at Discharge Acetaminophen/Diphenhydramine [Tylenol Pm Ex-Strength Caplet] 1 each PO QHS 10/27/17 Esomeprazole Mag Trihydrate [Nexium] 40 mg PO DAILY 10/27/17 Multivitamin [Multiple Vitamins] 1 each PO DAILY 04/22/18 Guaifenesin [Mucinex] 1,200 mg PO BID #14 tab 04/23/18 Ibuprofen [Advil] 600 mg PO Q6H PRN PRN #30 tablet 04/23/18 Lactobacillus Acidophilus [Acidophilus] 1 tab PO BID 7 Days #14 tab 04/23/18 Levofloxacin [Levaquin] 500 mg PO DAILY #5 tab 04/23/18 Following Prescrptions Were Given to Patient: Ibuprofen [Advil] 600 mg PO Q6H PRN PRN #30 tablet PRN Reason: pleurisy pain Levofloxacin [Levaquin] 500 mg PO DAILY #5 tab Guaifenesin [Mucinex] 1,200 mg PO BID #14 tab Lactobacillus Acidophilus [Acidophilus] 1 tab PO BID 7 Days #14 tab Primary Care Physician: Care Physician,No Primary [NON-STAFF] - Please follow up with your Primary Care Physician in: in 2 weeks Please Follow Up With: Earl Coppola MD When: in [address] Chest for CARLOS consolidation mass Medical Necessity - Tobacco Use Smoking Status: Never smoker Meaningful Use Info Meaningful Use Diagnoses (Choose all that apply): None applicable Code Visit Inpatient E&M: 38815 Disch Hosp
[2018-04-23] MEDS: Ketorolac 15 MG/ML Vial IV (09:51)
[2018-04-23] MEDS: levoFLOXacin IV 500 MG/100 ML BAG 100 MG IV (09:51)
[2018-04-23] MEDS: guaiFENesin 1,200 MG Tablet 1200 MG PO (09:55)
[2018-04-23] MEDS: Pantoprazole Sodium 40 MG Tablet PO (09:56)
== END 2018-04-23 11:55 | disposition home or self-care (01) ==
LOC: ED 21:38 → MS3 04-23 00:21
PROVIDERS: Admitting Provider Internal Medicine; Emergency Provider Emergency Medicine; Family Provider Internal Medicine; PCP Internal Medicine; Visit Provider Internal Medicine
DX: J18.9 Pneumonia, unspecified organism (principal); R65.10 Systemic inflammatory response syndrome (SIRS) of non-infectious origin without acute organ dysfunction; R91.8 Other nonspecific abnormal finding of lung field; I10 Essential (primary) hypertension
CPT/HCPCS: 71046; 71275; 80048; 81002; 84484; 85025; 85379; 87040; 87449; 87804; 93005; 96361; 96365; 96367; 96372; 96375; 96376; 99218; 99285; J7030; Q9967; A4216; G0378; J2405

== ENCOUNTER → 2018-05-30 13:01 | Outpatient (CLI) | payer OTHER, SELFPAY ==
--- NOTE | 2018-05-30 13:03 | CT_ITS ---
STUDY: CT CHEST WITHOUT CONTRAST REASON FOR EXAM: Female, 57 years old. Follow-up pneumonia RADIATION DOSAGE (If Supplied By Facility): CTDIvol = ( 13.50 ) mGy, DLP = ( 506 ) mGycm TECHNIQUE: Transaxial imaging was performed without the administration of intravenous contrast material. Multiplanar coronal and sagittal images were reformatted. Individualized dose optimization techniques were used for this CT. COMPARISON: April 22, 2018 FINDINGS: There is resolution of previously noted left upper lung consolidation. There are stable reticular nodular right middle lobe and left lingular opacities. There is no demonstrated pleural abnormality. Normal heart and pericardium. Normal mediastinum. Normal hilar regions. Normal unenhanced pulmonary arteries. There is atherosclerotic calcification of the aortic arch. Mild degenerative change of the spine. There is no demonstrated abnormality of the visualized upper abdomen. There is small cyst in the liver. CT/Chest without Contrast IMPRESSION: Resolution of previously seen left upper lung consolidation.. Stable reticulonodular lower lung opacities. No dominant mass. Electronically Signed: Shyam Ware MD at 22:35 EDT , Service support ,
== END ==
PROVIDERS: Family Provider Internal Medicine; PCP Internal Medicine; Visit Provider Nurse Practitioner Acute Care
DX: J18.9 Pneumonia, unspecified organism (principal)
CPT/HCPCS: 71250

== ENCOUNTER → 2019-04-12 | Outpatient (CLI) | payer OTHER, SELFPAY ==
[2019-04-12 13:02] VITALS: BMI 32.3
--- NOTE | 2019-04-12 14:00 | CPS ---
Outpatient instruction given on PEP device. Patient verbalizes understanding.
== END | disposition home or self-care (01) ==
LOC: PSN 13:44
PROVIDERS: Family Provider Internal Medicine; PCP Internal Medicine; Referring Provider Nurse Practitioner Acute Care; Visit Provider Nurse Practitioner Acute Care
DX: J47.9 Bronchiectasis, uncomplicated (principal)
CPT/HCPCS: 94667

== ENCOUNTER → 2019-04-27 07:22 | Outpatient (CLI) | payer OTHER, SELFPAY ==
[2019-04-12 13:02] VITALS: BMI 32.3
--- NOTE | 2019-04-27 07:24 | CT_ITS ---
STUDY: CT CHEST WITHOUT CONTRAST REASON FOR EXAM: Female, 58 years old. Bronchiectasis. History of pneumonia. RADIATION DOSAGE (If Supplied By Facility): CTDIvol = ( 13.77 ) mGy, DLP = ( 470.83 ) mGycm TECHNIQUE: Transaxial imaging was performed without the administration of intravenous contrast material. Multiplanar coronal and sagittal images were reformatted. Individualized dose optimization techniques were used for this CT. COMPARISON: Comparison is made with prior study dated May 30, 2018. FINDINGS: Enlargement of the left lobe of the thyroid. The right lobe of thyroid is not visualized on this examination. Stable mild the scarring at the lung apices slightly worse on the right side with the cystic changes. There now is evidence of infiltration in the peripheral aspect of the right middle lobe abutting the pleura and the right major fissure. There is no demonstrated pleural abnormality. Normal heart and pericardium. There are multiple small lymph nodes within the mediastinum, which are normal in size and morphology most compatible with reactive lymph hyperplasia. Normal hilar regions. Normal unenhanced pulmonary arteries. There is atherosclerotic calcification of the aortic arch. There are mild degenerative changes of the thoracic spine. There is no demonstrated abnormality of the visualized upper abdomen. CT/Chest without Contrast IMPRESSION: Inhomogeneous infiltrate in the peripheral lateral aspect of the right middle lobe as described. Follow-up is recommended. Electronically Signed: Catalino Bello, at 10:11 EDT , Service support ,
== END ==
PROVIDERS: Family Provider Internal Medicine; PCP Internal Medicine; Referring Provider Nurse Practitioner Acute Care; Visit Provider Nurse Practitioner Acute Care
DX: J47.9 Bronchiectasis, uncomplicated (principal)
CPT/HCPCS: 71250

== ENCOUNTER 2021-04-16 21:19 | Emergency (ER) | payer OTHER, SELFPAY ==
[2019-04-12 13:02] VITALS: BMI 32.3
[2021-04-16 21:20] VITALS: BP 134/79; PULSE 64; RESP 18; TEMP 37.1; O2SAT 97; BMI 35.7
--- NOTE | 2021-04-16 21:56 | EDS_ITS ---
HPI History of Present Illness Chief Complaint: Back Narrative Narrative: Patient presents with back pain. She recently started exercising and she has been hiking 7 or 8 miles a day trying to plan for a hiking trip. She is presenting with upper buttock and left-sided lower back pain. No midline pain no radiation of the pain to her leg. She has no bowel or bladder compromise. She has no urinary retention symptoms. She has no saddle anesthesia. [facility] Medical History (Updated 04/16/21 @ 22:[address] Chapin Ervin MD) Bronchitis CAP (community acquired pneumonia) Left frontal lobe mass Pleurisy without effusion Home Medications diphenhydramine-acetaminophen 1 ea PO QHS 10/27/17 [History Last Taken 04/21/18 21:00] esomeprazole magnesium 40 mg PO DAILY 10/27/17 [History Last Taken 04/21/18 21:00] multivitamin 1 ea PO DAILY 04/22/18 [History Last Taken 04/22/18 09:00] phentermine 37.5 mg tablet 37.5 mg PO QDAY 05/03/18 [History Last Taken Unknown] oxycodone-acetaminophen [Percocet] 1 tab PO Q8H PRN 3 Days #10 tab 04/16/21 [Rx Last Taken Unknown] Allergy/AdvReac Type Severity Reaction Status Date / Time hydromorphone [From Dilaudid] AdvReac Vomiting Verified 04/16/21 21:21 Family History (Reviewed 04/12/19 @ 13:11 by Aletha Weinstein [employer]UTION[employer] PROFESSOR, [employer] PROFESSOR-C) Brother Diabetes Grandmother Breast cancer Surgical History H/O total hysterectomy Social History (Updated 04/12/19 @ 14:06 by Aletha Weinstein [employer] PROFESSOR, CON[employer]UTION[employer] PROFESSOR-C) Smoking Status: Never smoker second hand exposure: Yes alcohol intake: current alcohol intake frequency: a few times a week Alcohol type: wine substance use type: does not use ROS ROS ED ROS Narrative Past medical history: Reviewed Medications: Reviewed Social history: Noncontributory Review of systems: All systems negative except as indicated General: No fever Cardiovascular: No chest pain Respiratory: No shortness of breath or cough Gastrointestinal: No abdominal pain, nausea vomiting or diarrhea Genitourinary: No dysuria Musculoskeletal: No lower extremity pain Back: Back pain as in HPI Skin: No rash Neurological: No memory loss, confusion or any focal weakness Psych: No recent behavioral changes Hematologic: No easy bleeding or easy bruising EXAM Physical Exam Narrative Exam Narrative: Vitals reviewed General: Patient appears in some discomfort HEENT: Moist mucous membranes Neck: Nontender Cardiovascular normal heart rate Respiratory: No respiratory difficulty speaking in full sentences Abdomen: Soft and nontender, there is no suprapubic mass or pain Back: There is some tenderness over the left upper buttock region but not in the SI joint region. There is some paraspinal pain in the lower lumbar region but no spinal tenderness. Extremities: Moves all extremities without joint pain or signs of trauma Neurological: There is normal plantar flexion and dorsiflexion of both feet and great toes. Patellar and Achilles reflexes are normal. Normal strength and s ensation. Negative straight leg test. Skin: No rash Psychiatric: Slightly anxious. Const Vital Signs: 04/16/21 21:20 Temperature 98.7 F Temperature Source Temporal Pulse Rate 64 Respiratory Rate 18 Blood Pressure 134/79 H Blood Pressure Mean 97 Pulse Ox 97 Oxygen Delivery Method Room Air MDM MDM MDM Narrative Medical decision making narrative: Patient has no red flags, this is likely all overuse related. I will treat with analgesia as she has muscle relaxants at home. She is told to rest for at least a week. Discharge Plan Triage Chief Complaint: Back ED Provider: Chapin Ervin Dx/Rx/DC Orders Clinical Impression: Back pain Instructions: ED Back Care Tips, ED Back Pain (Acute or Chronic), ED Back Spasm, No Trauma Prescriptions: New oxycodone-acetaminophen [Percocet] 5-325 mg tablet 1 tab PO Q8H PRN (Reason: pain) 3 Days Qty: 10 RF: 0 No Action phentermine 37.5 mg tablet 37.5 mg PO QDAY RF: 0 diphenhydramine-acetaminophen 1 EACH tablet 1 ea PO QHS RF: 0 esomeprazole magnesium 20 MG capsule 40 mg PO DAILY RF: 0 multivitamin 1 EACH tablet 1 ea PO DAILY RF: 0 Primary Care Provider: Satish Boone NP Referrals: Satish Boone NP, [employer] PROFESSOR-C [Primary Care Provider] - 2 Days Disposition Disposition: Home, self care
[2021-04-16 22:28] VITALS: BP 133/70; PULSE 78; RESP 16; O2SAT 96
== END 2021-04-16 22:30 | disposition home or self-care (01) ==
PROVIDERS: Emergency Provider Emergency Medicine; PCP Nurse Practitioner Primary Care
DX: M54.9 Dorsalgia, unspecified (principal); Z90.710 Acquired absence of both cervix and uterus
CPT/HCPCS: 99282